=== PATIENT | female | born 1985 | race Hispanic/Latino ===

== ENCOUNTER 2016-06-16 17:54 | Emergency (ER) | payer OTHER ==
[~2016-06-16] VITALS: Ht 162.6 cm; Wt 113.4 kg
[~2016-06-16 17:54] MED LIST: CARAFATE 1GM1000 MG PO; CIPRO 500MG TA500 MG PO; CYCLOBENZAPRINE10 MG PO; ECOTRIN81 MG PO; EPIPEN ADULT A0.3 MG IM; IBUPROFEN800 MG PO; KEFLEX500 M1 PO; LIPITOR20 MG PO; MULTI VITAMINS1 TAB PO; PERCOCET 325 MG1 TA2 PO; PRILOSEC 20MG C20 MG PO; TORADOL10 MG PO; VICODIN 300 MG-1 TAB PO; ZOFRAN ODT4 MG PO
[2016-06-16 18:02] VITALS: BP 144/66
[2016-08-19] MEDS ORDERED: VALIUM5 M2 PO (16:31)
== END 2016-06-16 19:00 | disposition admitted as inpatient to this hospital (09) ==
LOC: ERH 17:54
DX: R07.9 Chest pain, unspecified (principal)
CPT/HCPCS: 93005; 93010; 99281

== ENCOUNTER 2016-08-21 01:41 | Inpatient (IN) | payer OTHER ==
[~2016-08-21] VITALS: Ht 162.6 cm; Wt 97.5 kg
[~2016-08-21 01:41] MED LIST changes: +VALIUM5 M2 PO
--- NOTE | 2016-08-21 12:57 | Operative Report ---
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 Kurt Madrigal and Dr. Silviano Dudley Anesthesia: general endotracheal tube Complications: Cystotomy Operative/Procedure Note Note: Patient was seen the operating room placed prone position after adequate induction general anesthesia via endotracheal tube The Abdomen Was Prepped and Draped so Fashion Bladder Was Catheterized on at This Point through an Old Pfannenstiel Skin Incision Skin Was Cut Was Carried down to Rectus Fascia Which Was Cut in Curvilinear Fashion I Direction Peritoneal Cavity Was Entered High into the Abdomen on at This Point Blunt Dissection I Was Performed on Johnny Martinez 'Beto Was Placed in Usual Fashion on a Lap Pad with a Ring in the Upper Blade Was Placed Patient Was Placed in Trendelenburg at This Point a Cystotomy Was Noted for the Bladder. Dr. Connie Dudley on placed stents. This point the right tube and ovary were picked up clamped using Grewal ducts oversewn 2 using 0 the right tube and ovary were removed using Jose E's hemostasis was apparent on Dr. Dudley repaired the bladder on the bladder was filled with normal saline and found to be on water tight. At this point all lap pads removed Ristow was applied to the surgical site on the peritoneum was reapproximated 0 the fascia was reprocessed and to continue sutures #1 skin was reapproximated jhon on the Moe had blood-tinged urine at the end of the case. A sterile dressing was applied to the incision the patient was awakened from anesthesia extubated transferred recovery room awake alert with counts correct thank you
[2016-08-21] MEDS ORDERED: IBUPROFEN800 M1 PO (15:56)
[2016-08-21] MEDS ORDERED: PERCOCET 5-3251 EACH PO (15:56)
[2016-08-21 18:00] VITALS: BP 110/60
[2016-08-21 20:04] VITALS: BP 130/80
--- NOTE | 2016-08-21 21:53 | Operative Report ---
Operative/Inv Procedure Report Surgery Date: 08/21/16 Name of Procedure: CYSTOSCOPY: BILATERAL STENT INSERTION Pre-Operative Diagnosis: PELVIC MASS Post-Operative Diagnosis: SAME Estimated Blood Loss: scant Surgeon/Admittance Attendant: MD PERLA FARR-UROLOGY Anesthesia: general endotracheal tube Drains: 18FR MANZANARES Complications: NONE Operative/Procedure Note Note: The patient was taken to the operating room and placed on the OR table in supine position. Timeout was performed, with the patient awake, to confirm identify, planned procedures, anesthesia, antibiotics and other pertinent carine-operative information. After adequate anesthesia, and IV antibiotics, the patient was placed in lithotomy Yellow-fin stirrups. She was then draped and prepped in the usual surgical fashion, including a vaginal prep. A 22 Turkish cystoscope sheath with a 30 angle lens was inserted into the bladder without significant difficulty. The bladder was thoroughly and systematically examined, and was noted to be free of tumor, free of stone, free of endometriosis. Both ureteral orifices were in their orthotopic positions with clear reflux bilaterally. Under direct visualization the left orifice was intubated with a 5 Turkish whistle-tip catheter, which was advanced easily into the left kidney pelvis. The right ureteral orifice was intubated with a second 5 Turkish ureteral whistle tip catheter, and advanced into the right renal pelvis without difficulty. For identification purposes the blue marked stent went into the left kidney and the right ureteral stent was marked red. Urine culture was obtained and sent to pathology. The cystoscope was then removed leaving both stents in proper place. An 18 Turkish Manzanares catheter was inserted draining clear fluid and 10 mL of sterile water was then placed in the balloon. The ends ureteral stents, which protruded externally, were taped to the Manzanares catheter in order to secure their position. The individual ureteral stents were then connected to their individual drainage devices. The patient tolerated the procedure well. All sponge needle and instrument count were correct at the end of this procedure. The patient was then placed in supine position with Venodyne's in place. At this point, Dr. Sierra was able to proceed with her patient's surgery. CC: CHIKA JONAS,PERLA
--- NOTE | 2016-08-21 21:57 | Operative Report ---
Operative/Inv Procedure Report Surgery Date: 08/21/16 Name of Procedure: CLOSURE OF CYSTOTOMY; Pre-Operative Diagnosis: DIFFICULT ADHESIONS RESULTING IN PERFORATION OF BLADDER INRATOPERATIVELY Post-Operative Diagnosis: SAME Estimated Blood Loss: 50ml to 100ml Surgeon/Regulatory Associate: PRIMARY SURGEON: MD PERLA FARR-UROLOGY: ASSIST: KEENAN SIERRA MD Anesthesia: general endotracheal tube Drains: 8 fr castrejon. Complications: cystotomy during dissection of adhesions Operative/Procedure Note Note: During the patient's hysterectomy, scar tissue was encountered requiring dissection. I was called to the operating room to evaluate a small cystotomy inadvertently done at the dome of the bladder during the dissection. Upon thorough and systematic evaluation, the small cystotomy tear was opened slightly in order to expose the bladder in its entirety. Both ureteral orifices had intact stents in place, and no other injury was noted in the bladder. The Castrejon balloon was in place. The bladder mucosa was closed using 2-0 chromic interrupted sutures. The detrusor muscle where it was reapproximated using Vicryl stitch in a running fashion with intermittent locking stitch. At this point, the indwelling Castrejon was used to instill 300 mL of sterile water in order to evaluate the repair for any leaks. At the at 300 mL, the entire bladder was noted to fill appropriately with no leakage. The bladder was then drained via the Castrejon catheter. The remainder of the procedure was then completed by Dr. Sierra. The plan is for the patient to keep the Castrejon catheter for 7-10 days, and a voiding trial will be performed at that time. Findings: small bladder tear at dome of bladder: no other injuries on examination. Bladder closed in 2 layers. Discharge Disposition: completion of surgery per Dr. Sierra CC: PERLA FARR MD
[2016-08-21 22:49] VITALS: BP 114/80
[2016-08-22] VITALS (10 sets, daily range): BP systolic 110–120; BP diastolic 60–78
--- NOTE | 2016-08-22 06:38 | PN- Post Delivery/GYN ---
Subjective Subjective: NO COMPLAINTS SURGERY REVIEWED AGAIN WITHPT Objective Last 24 Hrs of Vital Signs/I&O Vital Signs Date Time Temp Pulse Resp B/P Pulse O2 O2 Flow FiO2 Ox Delivery Rate 08/22 0534 97.8 76 20 116/70 96 Room Air 08/22 0207 98.1 72 20 110/70 96 Room Air 08/22 0200 98.2 72 20 110/70 08/22 0059 98.2 95 20 110/70 94 Room Air 08/22 0000 98.2 95 20 110/70 08/21 2249 97.6 84 20 114/80 96 Nasal Cannula 08/21 2004 98.0 86 20 130/80 96 Nasal Cannula 08/21 1800 98.1 83 20 110/60 96 Nasal Cannula 08/21 1700 94 Nasal 2.0L Cannula 08/21 1600 94 Nasal 2.0L Cannula Intake & Output 08/22 0800 08/22 0000 08/21 1600 Intake Total 935 Output Total 1450 Balance -515 Intake, IV 875 Intake, Oral 60 Output, Urine 1450 Patient 215 lb Weight Physical Exam: PE OBESE HF IN NAD ABD SOFT NT INCISION CDI EXT -EDEMA-HOMANS Assessment/Plan Assessment/Plan ASSESS S/P RSO S/P BLADDER REPAIR PLAN CONT MANZANARES WITH LEG BAG FOR 1 WEEK
--- NOTE | 2016-08-22 11:30 | Cons- Cardiology ---
General Information and HPI Consulting Request Date of Consult: 08/22/16 Requested By: ESTUARDO JONAS,KEENAN Devries History of Present Illness: Nelia is a 30 year old female with history of palpitations. She underwent surgery yesterday for a pelvic mass and post-operatively, after receiving anesthesia, demonstrated episodes of oxygen desaturation. She otherwise is doing well. Her breathing is completely normal at this time with no symptoms of decompensated congestive heart failure. She denies chest discomfort, palpitaitons or any significant lightheadedness. To review this patient's prior history, in response to intermittent episodes of fast and uneven palpitations I did placed a loop recorder. This device has not disclosed any significant dysrhythmia's. At her baseline she continues to have some palpitations although they are less frequent. They have not correlated with any dysrhythmia on her loop monitor. She does have an occasional, stabbing and momentary chest discomfort that is non-exertional and atypical for ischemia. At her baseline this patient is active and enjoys kickboxing without problems. Cardiac workup has included a Holter monitor that was unrevealing of any significant pathology. It showed an average heart rate of 88BPM with one supraventricular ectopic beat. She did have some symptoms of rapid palpitations and chest stabbing while wearing the monitor but these symptoms were associated with NSR. The patient also had an echocardiogram that was essentially normal with no regional wall motion abnormalities and a stress test that was negative for ischemia. She does have inferior Q waves that I think are artifactual and are not indicative of a true IN. Allergies/Medications Allergies: Coded Allergies: latex (Mild, RASH 08/21/16) codeine (Mild, PSYCHOTIC 08/21/16) Home Med List: Aspirin (Ecotrin) 81 MG ECT 1 TAB PO DAILY HEART/BLOOD (Reported) CYCLOBENZAPRINE HCL (Cyclobenzaprine HCl) 10 MG TAB 1 TAB PO PRN MUSCLE SPASMS (Reported) Diazepam (Valium) 5 MG TABLET 1 TAB PO BIDP PRN ANXIETY (Reported) Epinephrine (Epipen 2-Andrea) 0.3 MG KIT 0.3 MG IM AD PRN ANAPHYLAXIS (Reported) Ibuprofen 800 MG TABLET 800 MG PO Q6P PRN PAIN Oxycodone HCl/Acetaminophen (Percocet 5-325 MG Tablet) 5 MG-325 MG TABLET 1 TAB PO Q4P PRN PAIN Review of Systems Review of Systems: A twelve point review of systems is unremarkable. 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 SEEN IN ED FOR ACUTE N/V Surgical History Surgical History: hysterectomy Psychosocial History Where Do You Live? Home Services at Home: None Smoking Status: Never Smoked Exam & Diagnostic Data Vital Signs and I&O Vital Signs Date Time Temp Pulse Resp B/P Pulse O2 O2 Flow FiO2 Ox Delivery Rate 08/22 0658 97.8 79 20 120/60 98 Room Air 08/22 0600 97.8 79 20 120/60 08/22 0534 97.8 76 20 116/70 96 Room Air 08/22 0400 97.8 76 20 116/70 08/22 0207 98.1 72 20 110/70 96 Room Air 08/22 0200 98.2 72 20 110/70 08/22 0059 98.2 95 20 110/70 94 Room Air 08/22 0000 98.2 95 20 110/70 08/21 2249 97.6 84 20 114/80 96 Nasal Cannula 08/21 2004 98.0 86 20 130/80 96 Nasal Cannula 08/21 1800 98.1 83 20 110/60 96 Nasal Cannula 08/21 1700 94 Nasal 2.0L Cannula 08/21 1600 94 Nasal 2.0L Cannula Intake & Output 08/22 1600 08/22 0800 08/22 0000 08/21 1600 08/21 0800 08/21 0000 Intake Total 1000 935 Output Total 1000 1450 Balance 0 -515 Intake, IV 1000 875 Intake, Oral 60 Number 0 Bowel Movements Output, Urine 1000 1450 Patient 215 lb Weight Physical Exam: General: WD/ overweight female in NAD; alert and oriented x 3 HEENT: NC/ AT, PERRL, EOMI Neck: no JVD, no carotid bruit Heart: RRR s/o murmur Lungs: clear bilaterally Abdomen: soft, obese, NT Extremities: no edema Assessment/Plan Assessment/Plan * This patient is doing well post-op. She is breathing comfortably although some minor apneic episodes were noted after surgery in the setting of recent anesthesia. There is no evidence of decompensated congestive heart failure, myocardial ischemia or palpitations. She is stable for discharge from a cardiac standpoint. Consult Acknowledgment - Thank you for your consult request.
[2016-08-22 13:14] LABS: ABSOLUTE BASOPHIL COUNT 0 /CUMM (0.0-0.2); ABSOLUTE EOSINOPHIL COUNT 0 /CUMM (0.0-0.7); ABSOLUTE GRANULOCYTE CT 10.6 /CUMM (1.4-6.5); ABSOLUTE LYMPH COUNT 1.7 /CUMM (1.2-3.4); BASOPHIL % 0.3 % (0.0-2.0); EOSINOPHIL % 0.1 % (0-5); MEAN CORPUSCULAR HGB CONC 33.7 G/DL (33.0-37.0)
[2016-08-22 13:18] LABS: GRANULOCYTE % 79.1 % (42.2-75.2); HEMATOCRIT 38.8 % (37-47); MEAN CORPUSCULAR HGB 30.4 PG (27.0-31.0); MEAN CORPUSCULAR VOLUME 90.4 FL (81.0-99.0); MEAN PLATELET VOLUME 8.3 FL (7.4-10.4); PLATELET COUNT 299 /CUMM (130-400); RBC DISTRIBUTION WIDTH 13.6 % (11.5-14.5)
[2016-08-22 13:20] LABS: WHITE BLOOD CELL COUNT 13.4 /CUMM (4.8-10.8)
[2016-08-23 07:21] VITALS: BP 100/70
--- NOTE | 2016-08-23 11:12 | PN- Post Delivery/GYN ---
Subjective Subjective: Doing well this morning. Pain is controlled with pain medications, though currently having somewhat increased pain as she was just out of bed and showering. Tolerating PO well. Ambulating and passing flatus. Describes minimal bleeding from her incision this morning after moving around. Castrejon in place. Review of Systems: per above Objective Last 24 Hrs of Vital Signs/I&O Vital Signs Date Time Temp Pulse Resp B/P Pulse O2 O2 Flow FiO2 Ox Delivery Rate 08/23 0721 97.8 84 20 100/70 95 Room Air 08/22 2238 98.1 90 20 112/78 97 Room Air 08/22 1448 97.7 80 20 118/68 98 Intake & Output 08/23 1600 08/23 0800 08/23 0000 Intake Total 100 480 Output Total 700 Balance 100 -220 Intake, Oral 100 480 Output, Urine 700 Physical Exam: NAD RRR S1 and S2 CTAB Abd: Good BS, minimal TTP Incision: C/D/I, jhon in place. No evidence of active bleeding Ext: no edema or erythema Current Medications: Current Medications Sig/Henry Start time Last Medication Dose Route Stop Time Status Admin Diphenhydramine HCl 25 MG Q6P PRN 08/21 1300 AC 08/22 INJ 0647 Docusate Sodium 100 MG BID 08/21 2200 AC 08/23 PO 0738 Ibuprofen 800 MG Q6P PRN 08/22 1300 AC 08/22 PO 2140 Ketorolac 30 MG .STK-MED ONE 08/22 1753 DC Tromethamine IM 08/22 1754 Ketorolac 30 MG Q6P PRN 08/21 1300 AC 08/23 Tromethamine INJ 0309 Magnesium Hydroxide 30 ML AT BEDTIME NEED.. 08/22 1300 AC 08/23 PO 0952 Ondansetron HCl 4 MG .STK-MED ONE 08/22 1603 DC IM 08/22 1604 Ondansetron HCl 4 MG Q6P PRN 08/21 1300 AC 08/23 IV 0828 Oxycodone/ 1 TAB Q4P PRN 08/22 1300 AC 08/23 Acetaminophen PO 0738 Last 24 Hrs of Labs/Odell: Laboratory Tests 08/22/16 1258: CBC w Diff NO MAN DIFF REQ, RBC 4.30, MCV 90.4, MCH 30.4, RDW 13.6, MPV 8.3, Gran % 79.1 H, Lymphocytes % 12.8 L, Monocytes % 7.7, Eosinophils % 0.1, Basophils % 0.3, Absolute Granulocytes 10.6 H, Absolute Lymphocytes 1.7, Absolute Monocytes 1.0 H, Absolute Eosinophils 0, Absolute Basophils 0, PUBS MCHC 33.7 Assessment/Plan Assessment/Plan POD #2 s/p oophporectomy with incidental cystotomy and subsequent repair Overall doing well Meeting all milestones for discharge at this time Patient given all precautions and voiced understanding. Castrejon to remain in place until she gets seen in 1 week for removal or castrejon and jhon. PAtient to be taught to take care of leg bag. Rx in chart. Attending MD Review Statement Attending Statement Attending MD Statement: examined this patient, discussed with family, discussed with nursing
[2016-08-23] MEDS ORDERED: DOCUSATE SODIU100 M3 PO (11:18)
--- NOTE | 2016-08-23 11:35 | NUR ---
0800 INTERVENTIONS CHARTED AT 1130, ALL INTERVENTIONS DONE AT 0800.
--- NOTE | 2016-09-04 10:49 | Surgical Discharge Summary ---
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 SEEN IN ED FOR ACUTE N/V History of MRSA: No History of VRE: No History of CDIFF: No Isolation History: Standard Surgical History Pertinent Surgical History: hysterectomy Psychosocial History Where Do You Live? Home Who Do You Live With? Significant Other Services at Home: None What is Your Primary Language? [place] Review of Systems: -13 point review of systems as stated in the [facility] Hospital Course Course Attending Physician: KEENAN MARTE MD Primary Care Physician: JENNIFER JONAS,[facility] Course: Patient was admitted for an exploratory laparotomy and on left oophorectomy on patient did well on during the course of her exploratory laparotomy patient had a cystotomy that was repaired by Dr. Silviano Dudley she had an indwelling Moe catheter she remained afebrile on the extent of the damage to her bladder and the need for the Moe to stable per week were reviewed with the patient presents postop day she tolerated clear liquid diet second postoperative day she tolerated regular diet she has showered she was discharged home the following physical exam showed pleasant female obese HEENT anicteric lungs clear abdomen soft nontender incision clean dry and intact extremities negative edema negative Homans urine clear . Allergies: Coded Allergies: latex (Mild, RASH 08/21/16) codeine (Mild, PSYCHOTIC 08/21/16) Disposition Summary Disposition Principal Diagnosis: Status post left salpingo-oophorectomy Additional Diagnosis: Cystotomy repair of bladder Discharge Disposition: home or self care Discharge Instructions General Discharge Information Code Status: Full Code Patient's Diet: Regular Patient's Activity: Pelvic rest for 6 weeks no heavy lifting for 6 weeks no driving for 2 weeks Follow-Up Instructions/Appts: My office 1 week Medications at Discharge Discharge Medications: Continue taking these medications: CYCLOBENZAPRINE HCL (Cyclobenzaprine HCl) 10 MG TAB 1 Tablet ORAL as needed for MUSCLE SPASMS Qty = 60 Comments: Last Taken: NOT GIVEN IN HOSPITAL Time: Epinephrine (Epipen 2-Andrea) 0.3 MG KIT 0.3 Milligram INTRAMUSC As Directed as needed for ANAPHYLAXIS Qty = 4 Comments: Last Taken: NOT GIVEN IN HOSPITAL Time: Aspirin (Ecotrin) 81 MG ECT 1 Tablet ORAL DAILY Comments: Last Taken: 06/19/15 Time: 9:20 AM Diazepam (Valium) 5 MG TABLET 1 Tablet ORAL 2 x Daily as needed as needed for ANXIETY Comments: NOT TAKEN IN HOSPITAL Start taking the following new medications: Ibuprofen (Ibuprofen) 800 MG TABLET 800 Milligram ORAL EVERY SIX HOURS NEEDED as needed for PAIN Qty = 30 No Refills Comments: Last Taken: 08/22/16 Time: 2100 Oxycodone HCl/Acetaminophen (Percocet 5-325 MG Tablet) 5 MG-325 MG TABLET 1 Tablet ORAL EVERY 4 HOURS NEEDED as needed for PAIN Qty = 30 No Refills Comments: Last Taken: 08/23/16 Time: 0740 Docusate Sodium (Docusate Sodium) 100 MG CAPSULE 100 Milligram ORAL TWICE DAILY as needed for CONSTIPATION Qty = 30 No Refills Comments: Last Taken: 08/23/16 Time: 0800
== END 2016-08-23 12:08 | DRG 513 ==
LOC: ENRESERVTM → CANRESERV → ENRESERVDT → SDA 01:41 → 2NA 01:41 → SDA 07:00 → EDSTATUS 07:00 → STS 07:00 → EDBEDREQ 12:56 → EDBEDREQTM 12:56 → 2NA 14:56
PROVIDERS: ADMIT Specialist
PROC: 0UT00ZZ Resection of Right Ovary, Open Approach (ICD-10-PCS; principal; 2016-08-21)
PROC: 0UT50ZZ Resection of Right Fallopian Tube, Open Approach (ICD-10-PCS; principal; 2016-08-21)
PROC: 0T788DZ Dilation of Bilateral Ureters with Intraluminal Device, Via Natural or Artificial Opening Endoscopic (ICD-10-PCS; 2016-08-21)
PROC: 0TQB0ZZ Repair Bladder, Open Approach (ICD-10-PCS; 2016-08-21)
DX: D27.0 Benign neoplasm of right ovary (principal); R19.09 Other intra-abdominal and pelvic swelling, mass and lump; N99.71 Accidental puncture and laceration of a genitourinary system organ or structure during a genitourinary system procedure; N73.6 Female pelvic peritoneal adhesions (postinfective); N83.11 Corpus luteum cyst of right ovary; K21.9 Gastro-esophageal reflux disease without esophagitis
CPT/HCPCS: 2NAP; 36415; 81003; 87086; 88305; 88307; J0131; J0694; J1170; J1200; J1885; J2405